=== PATIENT | female | born 1945 | race African-American/Black ===

== ENCOUNTER 2022-05-01 13:14 | Emergency (ER) | payer OTHER ==
[~2022-05-01] VITALS: Ht 172.7 cm; Wt 109.0 kg
[2022-05-01 14:58] LABS: BASOPHILS % 0.4 % (0.0-2.0); EOSINOPHILS % 0.7 % (0.0-5.0); HEMATOCRIT. 37.4 % (36.0-48.0); HEMOGLOBIN. 12.4 g/dL (12.0-16.0); LYMPHOCYTES % 25.2 % (20.0-50.0); MEAN CORPUSCULAR HEMOGLOBIN 32.8 pg (28.0-32.0); MEAN CORPUSCULAR VOLUME 99.1 fL (81.0-99.0); MONOCYTES % 11.4 % (2.0-8.0); NEUTROPHILS % 62.3 % (40.0-76.0); PLATELET 192 x1000/uL (130-400); RED BLOOD CELL COUNT 3.77 mill/uL (4.2-5.4)
[2022-05-01 15:07] LABS: CHLORIDE 104 mEq/L (98-107)
[2022-05-01] MEDS: METHYLPREDNISOLONE SOD SUCC 125 MG/2 ML VIAL IV ONE (16:19)
[2022-05-01] MEDS: DIPHENHYDRAMINE 50MG/ML VIAL IV ONE (16:19)
[2022-05-01] MEDS: ALBUTEROL (0.083%) 2.5MG/3ML NEB HHN ONE (16:30)
[2022-05-01 21:50] VITALS: BP 136/78
== END 2022-05-01 22:31 | disposition short-term general hospital (02) ==
LOC: ER 13:14 → CANBEDREQ 05-03 04:04
DX: T78.3XXA Angioneurotic edema, initial encounter (principal); R06.02 Shortness of breath; I10 Essential (primary) hypertension; Z91.011 Allergy to milk products; Z91.018 Allergy to other foods; Z20.822 Contact with and (suspected) exposure to COVID-19
CPT/HCPCS: 36415; 71045; 80053; 82962; 85025; 87426; 93005; 94640; 96374; 96375; 99285; C9803; J1200; J2930

== ENCOUNTER 2022-06-11 13:49 | Emergency (ER) | payer OTHER ==
[~2022-06-11] VITALS: Ht 162.6 cm; Wt 81.0 kg
[2022-06-11] MEDS ORDERED: albuterol (13:52)
[2022-06-11] MEDS ORDERED: DIPHENHYDRAMINE 50MG CAPSULE PO ONE (14:30)
[2022-06-11] MEDS ORDERED: PREDNISONE 20MG TABLET PO ONE (14:30)
[2022-06-11 15:58] LABS: CHLORIDE 103 mEq/L (98-107)
[2022-06-11 16:11] LABS: BASOPHILS % 0.2 % (0.0-2.0); EOSINOPHILS % 1.3 % (0.0-5.0); HEMATOCRIT. 40.3 % (36.0-48.0); HEMOGLOBIN. 13.1 g/dL (12.0-16.0); LYMPHOCYTES % 25.1 % (20.0-50.0); MEAN CORPUSCULAR HEMOGLOBIN 32.3 pg (28.0-32.0); MEAN PLATELET VOLUME 10.3 fl (7.4-10.4); MONOCYTES % 4.4 % (2.0-8.0); PLATELET 214 x1000/uL (130-400); RED BLOOD CELL COUNT 4.07 mill/uL (4.2-5.4); RED CELL DISTRIBUTION WIDTH 13.8 % (11.6-14.6)
[2022-06-11 17:17] VITALS: BP 120/73
[2022-06-11] MEDS ORDERED: EPIN0.3P3 IM (18:02)
[2022-06-11] MEDS ORDERED: DIPH25CA83 MT (18:02)
[2022-06-11] MEDS ORDERED: GUAI600T26 MT (18:02)
== END 2022-06-11 18:59 | disposition home or self-care (01) ==
LOC: ER 14:04
DX: T78.1XXA Other adverse food reactions, not elsewhere classified, initial encounter (principal); I10 Essential (primary) hypertension; J45.909 Unspecified asthma, uncomplicated; Z91.011 Allergy to milk products; Z91.018 Allergy to other foods; X58.XXXA Exposure to other specified factors, initial encounter
CPT/HCPCS: 36415; 80053; 85025; 93005; 99284; J7512; Q0163

== ENCOUNTER 2022-07-15 03:00 | Emergency (ER) | payer OTHER ==
[~2022-07-15] VITALS: Ht 172.7 cm; Wt 73.0 kg
[~2022-07-15 03:00] MED LIST: DIPH25CA83 MT; EPIN0.3P3 IM; GUAI600T26 MT; albuterol
[2022-07-15] MEDS ORDERED: DEXAMETHASONE 10 MG/ML VIAL IV ONE (03:45)
[2022-07-15] MEDS ORDERED: FAMOTIDINE 20MG/2ML VIAL IV ONE (03:45)
[2022-07-15 04:01] LABS: BASOPHILS % 0.2 % (0.0-2.0); EOSINOPHILS % 3.8 % (0.0-5.0); HEMATOCRIT. 37.6 % (36.0-48.0); HEMOGLOBIN. 12.5 g/dL (12.0-16.0); LYMPHOCYTES % 51.2 % (20.0-50.0); MEAN CORPUSCULAR HEMOGLOBIN 32.7 pg (28.0-32.0); MEAN CORPUSCULAR VOLUME 98.5 fL (81.0-99.0); MEAN PLATELET VOLUME 9.7 fl (7.4-10.4); MONOCYTES % 9.1 % (2.0-8.0); NEUTROPHILS % 35.7 % (40.0-76.0); PLATELET 232 x1000/uL (130-400); RED BLOOD CELL COUNT 3.81 mill/uL (4.2-5.4); RED CELL DISTRIBUTION WIDTH 14.2 % (11.6-14.6)
[2022-07-15 04:12] LABS: CHLORIDE 104 mEq/L (98-107)
[2022-07-15] MEDS ORDERED: PRED10TA MT (05:01)
[2022-07-15] MEDS ORDERED: DEXAMETHASONE 10 MG/ML VIAL IV NR (05:45)
[2022-07-15 06:00] VITALS: BP 169/77
[2022-07-15] MEDS ORDERED: FAMOTIDINE 20MG/2ML VIAL IV NR (06:00)
== END 2022-07-15 07:55 | disposition home or self-care (01) ==
LOC: ER 04:29
DX: T78.40XA Allergy, unspecified, initial encounter (principal); X58.XXXA Exposure to other specified factors, initial encounter; J45.909 Unspecified asthma, uncomplicated; E11.9 Type 2 diabetes mellitus without complications; I10 Essential (primary) hypertension; Z79.899 Other long term (current) drug therapy
CPT/HCPCS: 36415; 71045; 80053; 85025; 93005; 96374; 96375; 99285; J1100; J3490

== ENCOUNTER 2022-11-15 13:53 | Emergency (ER) | payer OTHER ==
[~2022-11-15] VITALS: Ht 167.6 cm; Wt 81.0 kg
[~2022-11-15 13:53] MED LIST changes: +PRED10TA MT
[2022-11-15 14:01] VITALS: O2SAT 99
[2022-11-15] MEDS ORDERED: IPRATROPIUM/ALBUTEROL 0.5-3(2.5)MG/3ML NEB HHN ONE (14:15)
[2022-11-15] MEDS ORDERED: METHYLPREDNISOLONE SOD SUCC 40MG VIAL IV ONE (14:15)
[2022-11-15] MEDS ORDERED: FAMOTIDINE 20MG/2ML VIAL IV ONE (14:15)
[2022-11-15 14:34] LABS: BASOPHILS % 0.7 % (0.0-2.0); EOSINOPHILS % 5.9 % (0.0-5.0); HEMOGLOBIN. 12.5 g/dL (12.0-16.0); LYMPHOCYTES % 44.6 % (20.0-50.0); MEAN CORPUSCULAR HEMOGLOBIN 33.3 pg (28.0-32.0); MEAN CORPUSCULAR HGB CONC 33.9 g/dL (31.0-37.0); MEAN CORPUSCULAR VOLUME 98.3 fL (81.0-99.0); MEAN PLATELET VOLUME 9.5 fl (7.4-10.4); MONOCYTES % 10.3 % (2.0-8.0); NEUTROPHILS % 38.5 % (40.0-76.0); PLATELET 194 x1000/uL (130-400); RED BLOOD CELL COUNT 3.76 mill/uL (4.2-5.4); RED CELL DISTRIBUTION WIDTH 13.9 % (11.6-14.6); WHITE BLOOD COUNT 4.6 x1000/uL (4.5-11.0)
[2022-11-15] MEDS ORDERED: METHYLPREDNISOLONE SOD SUCC 125MG VIAL IV NR (14:45)
[2022-11-15 14:47] LABS: CHLORIDE 104 mEq/L (98-107); INDEX HEMOLYSI 1 (1-3); INDEX ICTERIC 1 (1-4); INDEX LIPEMIC 1 (1-3); POTASSIUM 3.5 mEq/L (3.5-5.1); SODIUM 136 mEq/L (136-145)
[2022-11-15 15:00] LABS: ALANINE AMINOTRANSFERASE 23 IU/L (13-61); ALBUMIN 3.1 g/dL (3.4-5.0); ASPARTATE AMINOTRANSFERASE 15 IU/L (15-37); BILIRUBIN TOTAL 0.4 mg/dL (0.1-1.0); CALCIUM 8.5 mg/dL (8.5-10.1); CARBON DIOXIDE 26 mEq/L (21-32); CREATININE 0.7 mg/dL (0.6-1.3); GLUCOSE 202 mg/dL (70-105); NT PRO B-TYPE NATRIURETIC PEP 304 pg/mL (5-125); PROTEIN TOTAL 6.5 g/dL (6.0-8.3); UREA NITROGEN BLOOD 7 mg/dL (7-21)
[2022-11-15] MEDS ORDERED: FAMOTIDINE 20MG TABLET PO SCH (16:00)
[2022-11-15] MEDS ORDERED: PREDNISONE 20MG TABLET PO ONE (16:00)
[2022-11-15 18:33] LABS: CLARITY URINE CLOUDY (CLEAR); COLOR URINE YELLOW (YELLOW); GLUCOSE URINE TRACE (NEGATIVE); KETONES URINE NEGATIVE (NEGATIVE); LEUKOCYTE ESTERASE URINE NEGATIVE (NEGATIVE); NITRITE URINE NEGATIVE (NEGATIVE); OCCULT BLOOD URINE NEGATIVE (NEGATIVE); PH URINE 5.5 (4.5-8.0); PROTEIN URINE NEGATIVE (NEGATIVE); SPECIFIC GRAVITY URINE 1.006 (1.005-1.030); UROBILINOGEN URINE 0.2 E.U./dL (0.2-1.0)
[2022-11-15 18:35] LABS: BACTERIA URINE NONE SEEN; RBC URINE NONE SEEN /hpf (0-2); SQUAMOUS EPITHELIAL CELL URINE NONE SEEN /lpf (RARE/1+); WBC URINE 0-2 /hpf (0-2); YEAST URINE NONE SEEN
[2022-11-15] MEDS ORDERED: ALBU90AE INH (19:55)
[2022-11-15] MEDS ORDERED: P50 MT (19:55)
[2022-11-15] MEDS ORDERED: FAMO-135 MT (19:55)
[2022-11-15] MEDS ORDERED: EPIN0.3P3 IM (19:55)
[2022-11-15 20:00] VITALS: BP 115/75; PULSE 70; RESP 16; TEMP 98.7
== END 2022-11-15 20:03 | disposition home or self-care (01) ==
LOC: ER 13:53
DX: J45.901 Unspecified asthma with (acute) exacerbation (principal); I10 Essential (primary) hypertension; E11.9 Type 2 diabetes mellitus without complications; Z88.1 Allergy status to other antibiotic agents; Z91.011 Allergy to milk products; Z91.018 Allergy to other foods; Z79.899 Other long term (current) drug therapy
CPT/HCPCS: 99284; 71045; 80053; 81003; 83880; 85025; 36415; J7512; J2920

== ENCOUNTER 2023-05-07 13:15 | Emergency (ER) | payer OTHER ==
[~2023-05-07] VITALS: Ht 170.2 cm; Wt 84.0 kg
[~2023-05-07 13:15] MED LIST changes: +ALBU90AE INH; +FAMO-135 MT; +P50 MT
[2023-05-07 13:16] VITALS: O2SAT 98
[2023-05-07] MEDS ORDERED: DIPHENHYDRAMINE 50MG CAPSULE PO ONE (14:30)
[2023-05-07] MEDS ORDERED: DEXAMETHASONE 4MG/ML 1ML VIAL IM ONE (14:30)
[2023-05-07] MEDS ORDERED: FAMOTIDINE 20MG TABLET PO ONE (14:30)
[2023-05-07] MEDS ORDERED: DIPHENHYDRAMINE 25MG CAPSULE PO NR (14:45)
[2023-05-07 16:00] VITALS: BP 155/76; PULSE 62; RESP 18; TEMP 98.2
[2023-05-07] MEDS ORDERED: EPIN0.3P3 IM (16:17)
== END 2023-05-07 16:42 | disposition home or self-care (01) ==
LOC: ER 13:15
DX: T78.40XA Allergy, unspecified, initial encounter (principal); J45.909 Unspecified asthma, uncomplicated; E11.9 Type 2 diabetes mellitus without complications; I10 Essential (primary) hypertension; X58.XXXA Exposure to other specified factors, initial encounter
CPT/HCPCS: 96372; 99283; Q0163; J1100; Z7610 ×2

== ENCOUNTER 2023-05-09 11:28 | Emergency (ER) | payer OTHER ==
[~2023-05-09] VITALS: Ht 177.8 cm; Wt 91.0 kg
[2023-05-09 11:30] VITALS: O2SAT 96
[2023-05-09] MEDS ORDERED: PREDNISONE 20MG TABLET PO STA (13:01)
[2023-05-09] MEDS ORDERED: FAMOTIDINE 20MG TABLET PO ONE (13:15)
[2023-05-09] MEDS ORDERED: DIPHENHYDRAMINE 25MG CAPSULE PO ONE (13:15)
[2023-05-09] MEDS ORDERED: DIPH25CA83 MT (16:26)
[2023-05-09] MEDS ORDERED: PRED10TA MT (16:26)
[2023-05-09] MEDS ORDERED: EPIN0.3P3 IM (16:26)
[2023-05-09] MEDS ORDERED: P50 MT (16:26)
[2023-05-09 17:45] VITALS: BP 127/59; PULSE 81; RESP 17; TEMP 98.5
== END 2023-05-09 17:48 | disposition home or self-care (01) ==
LOC: ER 11:28
DX: T78.2XXA Anaphylactic shock, unspecified, initial encounter (principal); J45.909 Unspecified asthma, uncomplicated; E11.9 Type 2 diabetes mellitus without complications; I10 Essential (primary) hypertension; Z79.899 Other long term (current) drug therapy; X58.XXXA Exposure to other specified factors, initial encounter
CPT/HCPCS: 99284; Q0163; J7512

== ENCOUNTER 2024-10-01 16:50 | Inpatient (IN) | payer MEDICARE, OTHER ==
[~2024-10-01] VITALS: Ht 162.6 cm; Wt 73.5 kg
[2024-10-01] MEDS: PREDNISONE 20MG TABLET PO STA (17:24)
[2024-10-01 17:53] LABS: BASOPHILS % 0.3 % (0.0-2.0); EOSINOPHILS % 4.6 % (0.0-5.0); HEMATOCRIT. 35.3 % (36.0-48.0); HEMOGLOBIN. 11.7 g/dL (12.0-16.0); LYMPHOCYTES % 57.3 % (20.0-50.0); MEAN CORPUSCULAR HEMOGLOBIN 32.5 pg (28.0-32.0); MEAN CORPUSCULAR HGB CONC 33.2 g/dL (31.0-37.0); MEAN CORPUSCULAR VOLUME 97.8 fL (81.0-99.0); MEAN PLATELET VOLUME 9.6 fl (7.4-10.4); MONOCYTES % 7.5 % (2.0-8.0); NEUTROPHILS % 30.3 % (40.0-76.0); PLATELET 186 x1000/uL (130-400); RED BLOOD CELL COUNT 3.61 mill/uL (4.2-5.4); RED CELL DISTRIBUTION WIDTH 13.4 % (11.6-14.6); WHITE BLOOD COUNT 4.2 x1000/uL (4.5-11.0)
[2024-10-01 18:01] LABS: PROTHROMBIN TIME 10.9 sec (9.6-11.0)
[2024-10-01 18:03] LABS: CARBON DIOXIDE 28 mEq/L (21-32); CHLORIDE 101 mEq/L (98-107); POTASSIUM 3.8 mEq/L (3.5-5.1); SODIUM 138 mEq/L (136-145)
[2024-10-01 18:04] LABS: CALCIUM 9.7 mg/dL (8.7-10.4)
[2024-10-01 18:09] LABS: GLUCOSE 243 mg/dL (70-105); TROPONIN I HIGH SENSITIVITY 6 ng/L (3.0-34); UREA NITROGEN BLOOD 7 mg/dL (9-23)
[2024-10-01 18:10] LABS: ALANINE AMINOTRANSFERASE 9 IU/L (10-49); ALBUMIN 3.9 g/dL (3.2-4.8); ASPARTATE AMINOTRANSFERASE 18 IU/L (<34)
[2024-10-01 18:11] LABS: BILIRUBIN DIRECT < 0.1 mg/dL (<=3.0); BILIRUBIN TOTAL 0.2 mg/dL (0.1-1.0); PROTEIN TOTAL 6.6 g/dL (6.0-8.3)
[2024-10-01 18:27] VITALS: PULSE 68; RESP 20; O2SAT 99
[2024-10-01] MEDS: IPRATROPIUM BROMIDE (0.02%) 0.5MG/2.5ML NEB HHN STA (18:27)
[2024-10-01] MEDS: ALBUTEROL (0.083%) 2.5MG/3ML NEB HHN STA (18:27)
[2024-10-01 19:09] LABS: TROPONIN I HIGH SENSITIVITY 10 ng/L (3.0-34)
[2024-10-01] MEDS: DIPHENHYDRAMINE 25MG CAPSULE PO ONE (19:30)
[2024-10-01] MEDS: FAMOTIDINE 20MG TABLET PO SCH (19:30)
[2024-10-01] MEDS: KETOROLAC 15MG/ML VIAL IM ONE (20:23)
[2024-10-01 23:04] VITALS: BP 139/70; PULSE 71; RESP 20; TEMP 35.9; O2SAT 99
[2024-10-02] VITALS: BP 141/65; PULSE 65; RESP 20; TEMP 36; O2SAT 98
[2024-10-02 00:15] VITALS: BP 139/70; PULSE 74; RESP 18; TEMP 35.8
[2024-10-02] MEDS ORDERED: IPRATROPIUM/ALBUTEROL 0.5-3(2.5)MG/3ML NEB HHN PRN (00:15)
[2024-10-02] MEDS ORDERED: ACETAMINOPHEN 325MG TABLET PO PRN (00:15)
[2024-10-02] MEDS ORDERED: DEXTROSE 50% WATER 50ML SYRINGE IV PRN (00:15)
[2024-10-02] MEDS ORDERED: ONDANSETRON HCL 4MG/2ML INJ IV PRN (00:15)
[2024-10-02] MEDS: MELATONIN 3MG TABLET PO ONE (01:16)
[2024-10-02] MEDS: BLOOD SUGAR DIAGNOSTIC STRIP TEST SCH (06:18)
[2024-10-02 08:00] VITALS: BP 162/73; PULSE 61; RESP 15; TEMP 36.6; O2SAT 98
[2024-10-02] MEDS: ACETAMINOPHEN 325MG TABLET PO PRN (09:10)
[2024-10-02] MEDS: CLONIDINE 0.1MG TABLET PO PRN (09:12)
[2024-10-02] MEDS: INSULIN LISPRO 100 UNITS/ML SUBCUT SCH (09:13)
[2024-10-02] MEDS: LIDOCAINE 5% PATCH TOP SCH (11:39)
[2024-10-02 12:00] VITALS: BP 149/62; PULSE 57; RESP 16; TEMP 36.6; O2SAT 99
[2024-10-02] MEDS: KETOROLAC 15MG/ML VIAL IV PRN (14:42)
[2024-10-02 16:00] VITALS: BP 154/65; PULSE 54; RESP 16; TEMP 36.5; O2SAT 99
[2024-10-02 20:00] VITALS: BP 130/54; PULSE 58; RESP 18; TEMP 36.6; O2SAT 99
[2024-10-02] MEDS ORDERED: MELATONIN 3MG TABLET PO ONE (21:00)
[2024-10-02] MEDS: MELATONIN 3MG TABLET PO SCH (23:00)
[2024-10-03] VITALS: BP 143/52; PULSE 51; RESP 19; TEMP 36.5; O2SAT 98
[2024-10-03 08:00] VITALS: BP 175/71; PULSE 52; RESP 18; TEMP 36.2; O2SAT 96
[2024-10-03] MEDS: HYDROCODONE/ACETAMINOPHEN 5/325MG TABLET PO NR (09:02)
[2024-10-03 10:20] LABS: BASOPHILS % 0.6 % (0.0-2.0); EOSINOPHILS % 6.3 % (0.0-5.0); HEMATOCRIT. 31.6 % (36.0-48.0); HEMOGLOBIN. 10.5 g/dL (12.0-16.0); LYMPHOCYTES % 54.2 % (20.0-50.0); MEAN CORPUSCULAR HEMOGLOBIN 32.1 pg (28.0-32.0); MEAN CORPUSCULAR HGB CONC 33.3 g/dL (31.0-37.0); MEAN CORPUSCULAR VOLUME 96.6 fL (81.0-99.0); MEAN PLATELET VOLUME 10.2 fl (7.4-10.4); MONOCYTES % 9.1 % (2.0-8.0); NEUTROPHILS % 29.8 % (40.0-76.0); PLATELET 184 x1000/uL (130-400); RED BLOOD CELL COUNT 3.27 mill/uL (4.2-5.4); RED CELL DISTRIBUTION WIDTH 13.5 % (11.6-14.6); WHITE BLOOD COUNT 3.9 x1000/uL (4.5-11.0)
[2024-10-03 10:39] LABS: CARBON DIOXIDE 29 mEq/L (21-32); CHLORIDE 99 mEq/L (98-107); SODIUM 138 mEq/L (136-145)
[2024-10-03 10:40] LABS: CALCIUM 8.8 mg/dL (8.7-10.4)
[2024-10-03 10:44] LABS: CREATININE 0.9 mg/dL (0.6-1.0)
[2024-10-03 10:45] LABS: GLUCOSE 117 mg/dL (70-105); UREA NITROGEN BLOOD 12 mg/dL (9-23)
[2024-10-03 12:00] VITALS: BP 143/54; PULSE 56; RESP 15; TEMP 36.1; O2SAT 99
[2024-10-03 14:38] VITALS: BP 138/57; PULSE 57; TEMP 97.7; O2SAT 99
== END 2024-10-03 16:30 | disposition home or self-care (01) | DRG 916 ==
LOC: ER 16:50 → 6WST 21:50 → ENRESERV 22:17
PROVIDERS: ADMIT Internal Medicine; ATTEND Internal Medicine
DX: T78.2XXA Anaphylactic shock, unspecified, initial encounter (principal); R79.89 Other specified abnormal findings of blood chemistry; E11.9 Type 2 diabetes mellitus without complications; J45.909 Unspecified asthma, uncomplicated; M25.461 Effusion, right knee; I10 Essential (primary) hypertension; Z79.899 Other long term (current) drug therapy; Y92.89 Other specified places as the place of occurrence of the external cause
CPT/HCPCS: 36415; 71045; 80048; 80076; 82962; 83880; 84484; 85025; 93005; 94070; 94640; 94664; 98960; 99291; J1815; J1885; J7512; Q0163